=== PATIENT | female | born 1970 | race Two or more races ===

== ENCOUNTER 2016-12-24 00:40 | Emergency (ER) | payer BC ==
[~2016-12-24] VITALS: Ht 157.5 cm; Wt 108.0 kg
[2016-12-24] MEDS ORDERED: HYDR-2666 PO (01:54)
--- NOTE | 2016-12-24 01:54 | PHYS DOC ---
Past Medical History Past Medical History: Other Additional Past Medical Histor: Prediabetes Past Surgical History: No Surgical History Alcohol Use: None Drug Use: None Adult General Chief Complaint Chief Complaint: UPPER EXTREMITY PAIN HPI HPI 46-year-old female presenting to the emergency department with pain in the neck that is sharp stabbing radiating down both arms. It is intermittent and is been present for the last 2 weeks. It is worse with movement of the neck. She denies any numbness weakness or tingling. She denies any slurring speech. She denies any recent trauma or MVC. Review of systems is negative for chest pain shortness of breath abdominal pain or vomiting. All other review of systems is negative unless otherwise noted in history of present illness. Review of Systems Review of Systems SEE ABOVE. Current Medications Current Medications Current Medications Medications (Trade) Dose Ordered Sig/Anila Start Time Stop Time Status Last Admin Dose Admin Hydromorphone HCl (Dilaudid) 1 mg 1X ONCE 12/24/16 02:00 12/24/16 02:01 DC 12/24/16 01:55 1 MG Allergies Allergies Allergies Coded Allergies Type Severity Reaction Last Updated Verified No Known Drug Allergies 12/24/16 No Physical Exam Physical Exam Constitutional: Well developed, well nourished, no acute distress, non-toxic appearance. HENT: Normocephalic, atraumatic, bilateral external ears normal, oropharynx moist, no oral exudates, nose normal. [] Eyes: PERRLA, EOMI, conjunctiva normal, no discharge. [] Neck: Normal range of motion, no tenderness, supple, no stridor. Cardiovascular:Heart rate regular rhythm, no murmur [] Lungs & Thorax: Bilateral breath sounds clear to auscultation Abdomen: Bowel sounds normal, soft, no tenderness, no masses, no pulsatile masses. Skin: Warm, dry, no erythema, no rash. [] Back: No tenderness, no CVA tenderness. Extremities: No tenderness, no cyanosis, no clubbing, ROM intact, no edema. Neurologic: Neuro exam: Mental status: Awake oriented and alert x3 Cranial nerves: Extraocular movements intact, eyebrows tru bilaterally smile symmetric, uvula elevation, shoulder shrug intact, tongue protrusion normal Sensation: equal and normal in all extremities Strength: 5/5 in upper and lower extremities bilaterally Psychologic: Affect normal, judgement normal, mood normal. Current Patient Data Vital Signs Vital Signs Date Time Temp Pulse Resp B/P Pulse Ox O2 Delivery O2 Flow Rate FiO2 12/24/16 01:55 18 12/24/16 01:06 98.3 78 150/76 98 Room Air 98.3 Lab Values Laboratory Tests Test 12/24/16 01:43 POC Urine HCG, Qualitative Hcg negative (Negative) EKG EKG [] Radiology/Procedures Radiology/Procedures [] Course & Med Decision Making Course & Med Decision Making Pertinent Labs and Imaging studies reviewed. (See chart for details) [] 38-year-old female presenting to the emergency department with neck pain radiating down both extremities. Vital signs unremarkable. Neurologic exam unremarkable. Signs and symptoms suggestive of cervical radiculopathy. Intramuscular medication given for pain. On reevaluation her pain improved significantly. I recommended the patient follow up with her primary care physician in 2 days for further evaluation workup and care. Obtaining an outpatient cervical MRI may be appropriate, defer to PCP. Dragon Disclaimer Dragon Disclaimer This electronic medical record was generated, in whole or in part, using a voice recognition dictation system. Departure Departure Impression: Primary Impression: Cervical radicular pain Disposition: HOME, SELF-CARE Condition: STABLE Referrals: JAMES MILLER MD (PCP) Patient Instructions: Cervical Radiculopathy Additional Instructions: Thank you for allowing us to participate in your care today. Followup with your primary care physician in 3 days if your symptoms do not improve. If you do not have a primary care provider you can ask for a list of our primary care providers. Return to the emergency department you have any new or concerning findings. This should be evaluated by the primary care physician and any necessary consulting services for continued management within a few days after discharge. Return to emergency room if you have any new or concerning symptoms including but not limited to fever, chills, nausea, vomiting, intractable pain, any new rashes, chest pain, shortness of air, uncontrolled bleeding, difficulty breathing, and/or vision loss. You may have been prescribed medication that can change in your level of thinking and ability to operate machinery. These medications include hydrocodone and Ativan. Also, Benadryl has been known to do this as well. Be sure to check with your pharmacist and ask if the medications you've prescribed can affect your level of consciousness. I recommend not operating heavy machinery or driving while on medication such as these. Scripts Hydrocodone Bit/Acetaminophen (Hydrocodone-Apap 5-325 )1 Each Tablet1 Tab PO PRN Q6HRS PRN PAIN #15 TAB Be careful as this medication may cause you to be drowsy or tired. Do not drive on this medication. Prov:JOCELIN JOHNSON MD 12/24/16 JOCELIN JOHNSON MD Dec 24, 2016 01:54
[2016-12-24] MEDS ORDERED: HYDROMORPHONE 2 MG/ML VIAL. IM ONE (02:00)
[2016-12-24 02:15] VITALS: BP 143/83
== END 2016-12-24 02:20 | disposition home or self-care (01) ==
LOC: ER 00:40
DX: M54.12 Radiculopathy, cervical region (principal)
CPT/HCPCS: 81025; 96372; 99283; J1170

== ENCOUNTER → 2017-01-09 | Outpatient (CLI) | payer BC ==
[2016-12-24 02:15] VITALS: BP 143/83
[~2017-01-09] MED LIST: HYDR-2666 PO
--- NOTE | 2017-01-09 11:08 | KCIC ---
PROCEDURE Abdomen sonogram. HISTORY Pain. TECHNIQUE Sonographic imaging of the abdomen was performed. COMPARISON None. FINDINGS The exam is limited due to body habitus and bowel gas. There is hepatomegaly and hepatic steatosis. No focal hepatic lesion is seen. The common bile duct is normal in caliber, measuring 3.2 mm. The gallbladder, kidneys and spleen are unremarkable. The pancreas is partially obscured due to bowel gas. The abdominal aorta is partially obscured due to bowel gas. However, the visualized portions of the aorta are normal in caliber. The inferior vena cava is patent. There is no sonographic evidence of ventral abdominal wall hernia. IMPRESSION 1. Hepatomegaly and hepatic steatosis. 2. Otherwise, relatively unremarkable abdomen sonogram. The exam is limited due to bowel gas and body habitus. Electronically signed by: Carline Arrieta (Jan 09, 2017 11:07:03)
== END | disposition home or self-care (01) ==
LOC: KCIC US 08:54
PROVIDERS: ATTEND Family Medicine
DX: R10.9 Unspecified abdominal pain (principal); K46.9 Unspecified abdominal hernia without obstruction or gangrene
CPT/HCPCS: 76700

== ENCOUNTER 2021-07-01 16:11 | Emergency (ER) | payer SELFPAY ==
[~2021-07-01] VITALS: Ht 160 cm; Wt 96.0 kg
[~2021-07-01 16:11] MED LIST changes: -HYDR-2666 PO; +HYDR-2761 PO
[2021-07-01] MEDS ORDERED: fentaNYL PF VIAL 100 MCG/2 ML VIAL IVP ONE (18:15)
[2021-07-01] MEDS ORDERED: IV NORMAL SALINE 1000ML BAG 1,000 ML IV SCH (18:15)
[2021-07-01 18:28] LABS: BILIRUBIN,URINE SMALL (NEG); CLARITY,URINE CLOUDY; COLOR,URINE AMBER; NITRITE,URINE NEGATIVE (NEG); PH,URINE 5.5 (<5.0-8.0); PROTEIN,URINE 30 mg/dL (NEG-TRACE); UROBILINOGEN,URINE 0.2 mg/dL (0.2 mg/dL)
--- NOTE | 2021-07-01 18:40 | RAD ---
Examination: CT of the abdomen pelvis without contrast HISTORY: History of right lower quadrant abdominal pain, flank pain COMPARISON: None available TECHNIQUE: Axial CT images of the abdomen pelvis were performed without contrast. Coronal and sagitta l deformities are performed Exposure: One or more of the following individualized dose reduction techniques were utilized for thi s examination: 1. Automated exposure control 2. Adjustment of the mA and/or kV according to patient size 3. Use of iterative reconstruction technique FINDINGS: The bibasilar lungs are clear. No evidence of free air identified in the abdomen The evaluation of the solid organs is limited due to lack of IV contrast. The evaluation of bowel is limited due to lack of oral contrast. The visualized noncontrasted liver, spleen, adrenals grossly ap pears unremarkable. The gallbladder is mildly distended. The stomach is mildly distended. Faint quest ionable fat stranding identified about the pancreas. Small bowel is nondilated. The appendix is isabella l. Feces and gas noted in the colon. Rounded densities identified in the uterus with the largest sukhjinder uring 5.2 cm probably fibroids. No evidence of intrarenal collecting system calculi or hydronephrosis . Mild degenerative changes thoracolumbar spine. IMPRESSION: 1. Faint questionable fat stranding identified about the pancreas could been significant motion marion fact or mild pancreatitis. Correlate with lab values. 2. Rounded densities identified in the uterus with the largest measuring 5.2 cm probably fibroids. Electronically signed by: Tito Zamora MD (07/01/2021 6:37 PM) [id number]
[2021-07-01 18:41] LABS: BACTERIA,URINE FEW /HPF (0-FEW); RBC,URINE 0 /HPF (0-2)
[2021-07-01 19:06] LABS: BASO # 0.1 x10^3/uL (0.0-0.2); BASO % 1 % (0-3); EOS # 0.2 x10^3/uL (0.0-0.7); EOS % 2 % (0-3); HEMATOCRIT 38.5 % (36.0-47.0); HEMOGLOBIN 13.3 g/dL (12.0-15.5); LYMPH # 2.3 x10^3/uL (1.0-4.8); LYMPH % 24 % (24-48); MEAN CORPUSCULAR HEMOGLOBIN 31 pg (25-35); MEAN CORPUSCULAR HGB CONC 35 g/dL (31-37); MEAN CORPUSCULAR VOLUME 90 fL (79-100); MONO # 0.7 x10^3/uL (0.0-1.1); MONO % 8 % (0-9); NEUT % 65 % (31-73); PLATELET COUNT 346 x10^3/uL (140-400); RED BLOOD COUNT 4.27 x10^6/uL (3.50-5.40); RED CELL DISTRIBUTION WIDTH 12.6 % (11.5-14.5); WHITE BLOOD COUNT 9.3 x10^3/uL (4.0-11.0)
[2021-07-01 19:16] LABS: CALCIUM 9.8 mg/dL (8.5-10.1); CREATININE 0.7 mg/dL (0.6-1.0); GFR 87.9; POTASSIUM 3.6 mmol/L (3.5-5.1)
--- NOTE | 2021-07-01 19:17 | PHYS DOC ---
Past Medical History Past Medical History: Other Additional Past Medical Histor: Prediabetes Past Surgical History: No Surgical History Smoking Status: Former Smoker Alcohol Use: Occasionally Drug Use: None General Adult EDM: Chief Complaint: BACK PAIN - NO INJURY HPI: HPI: Patient is a 50 year old female who presents with right lower quadrant pain that wraps around to her back at times will be sharp shooting down her leg. Is worse with movement. When she goes to put her right leg down to take a step the pain shoots up. She does do food prep. Patient states she took 3 ibuprofen at 1400 today. States she has had this pain in the past but does not know she was diagnosed for it. Patient has had both of her Covid vaccines. Patient rates her pain as a 7 out of 10 at this time. She denies urinary symptoms, fever, nausea, vomiting, diarrhea, chest pain, shortness of air, focal weakness, loss of bowel bladder, numbness or tingling, dizziness, headache. Review of Systems: Review of Systems: Constitutional: Denies fever or chills. [] Eyes: Denies change in visual acuity. [] HENT: Denies nasal congestion or sore throat. [] Respiratory: Denies cough or shortness of breath. [] Cardiovascular: Denies chest pain or edema. [] GI: + Right lower quadrant abdominal pain, denies nausea, vomiting, bloody stools or diarrhea. [] : Denies dysuria. [] Musculoskeletal: + Right lower back pain or denies joint pain. + Back of leg pain [] Integument: Denies rash. [] Neurologic: Denies headache, focal weakness or sensory changes. [] Endocrine: Denies polyuria or polydipsia. [] Lymphatic: Denies swollen glands. [] Psychiatric: Denies depression or anxiety. [] Heart Score: C/O Chest Pain: No Risk Factors: Risk Factors: DM, Current or recent (<one month) smoker, HTN, HLP, family h istory of CAD, obesity. Risk Scores: Score 0 - 3: 2.5% MACE over next 6 weeks - Discharge Home Score 4 - 6: 20.3% MACE over next 6 weeks - Admit for Clinical Observation Score 7 - 10: 72.7% MACE over next 6 weeks - Early Invasive Strategies Current Medications: Current Medications Medications (Trade) Dose Ordered Sig/Anila Start Time Stop Time Status Last Admin Dose Admin Fentanyl Citrate (Fentanyl 2ml Vial) 25 mcg 1X ONCE 07/01/21 18:15 07/01/21 18:24 DC 07/01/21 19:03 25 MCG Sodium Chloride 1,000 ml @ 1,000 mls/hr Q1H 07/01/21 18:15 07/01/21 19:14 07/01/21 19:03 1,000 MLS/HR Allergies: Allergies: Allergies Coded Allergies Type Severity Reaction Last Updated Verified No Known Drug Allergies 12/24/16 No Physical Exam: PE: Constitutional: Well developed, well nourished, no acute distress, non-toxic appearance. [] HENT: Normocephalic, atraumatic, bilateral external ears normal, oropharynx moist, no oral exudates, nose normal. [] Eyes: PERRLA, EOMI, conjunctiva normal, no discharge. [] Neck: Normal range of motion, no tenderness, supple, no stridor. [] Cardiovascular:Heart rate regular rhythm, no murmur [] Lungs & Thorax: Bilateral breath sounds clear to auscultation [] Abdomen: Bowel sounds normal, soft, right lower tenderness, no masses, no pulsatile masses. [] Skin: Warm, dry, no erythema, no rash. [] Back: Right lower tenderness, no CVA tenderness. [] Extremities: No tenderness, no cyanosis, no clubbing, ROM intact, no edema. [] Neurologic: Alert and oriented X 3, normal motor function, normal sensory function, no focal deficits noted. [] Psychologic: Affect normal, judgement normal, mood normal. [] Current Patient Data: Labs: Laboratory Tests Test 07/01/21 17:33 07/01/21 19:00 Urine Collection Type Unknown Urine Color Tammy Urine Clarity Cloudy Urine pH 5.5 (<5.0-8.0) Urine Specific Brandon >=1.030 (1.000-1.030) Urine Protein 30 mg/dL (NEG-TRACE) Urine Glucose (UA) Negative mg/dL (NEG) Urine Ketones (Stick) Trace mg/dL (NEG) Urine Blood Small (NEG) Urine Nitrite Negative (NEG) Urine Bilirubin Small (NEG) Urine Urobilinogen Dipstick 0.2 mg/dL (0.2 mg/dL) Urine Leukocyte Esterase Negative (NEG) Urine RBC 0 /HPF (0-2) Urine WBC 5-10 /HPF (0-4) Urine Squamous Epithelial Cells Many /LPF Urine Bacteria Few /HPF (0-FEW) Urine Mucus Marked /LPF White Blood Count 9.3 x10^3/uL (4.0-11.0) Red Blood Count 4.27 x10^6/uL (3.50-5.40) Hemoglobin 13.3 g/dL (12.0-15.5) Hematocrit 38.5 % (36.0-47.0) Mean Corpuscular Volume 90 fL (79-100) Mean Corpuscular Hemoglobin 31 pg (25-35) Mean Corpuscular Hemoglobin Concent 35 g/dL (31-37) Red Cell Distribution Width 12.6 % (11.5-14.5) Platelet Count 346 x10^3/uL (140-400) Neutrophils (%) (Auto) 65 % (31-73) Lymphocytes (%) (Auto) 24 % (24-48) Monocytes (%) (Auto) 8 % (0-9) Eosinophils (%) (Auto) 2 % (0-3) Basophils (%) (Auto) 1 % (0-3) Neutrophils # (Auto) 6.0 x10^3/uL (1.8-7.7) Lymphocytes # (Auto) 2.3 x10^3/uL (1.0-4.8) Monocytes # (Auto) 0.7 x10^3/uL (0.0-1.1) Eosinophils # (Auto) 0.2 x10^3/uL (0.0-0.7) Basophils # (Auto) 0.1 x10^3/uL (0.0-0.2) Laboratory Tests 07/01/21 19:00 Vital Signs: Vital Signs Date Time Temp Pulse Resp B/P (MAP) Pulse Ox O2 Delivery O2 Flow Rate FiO2 07/01/21 19:03 16 99 Room Air 07/01/21 17:46 98.4 76 155/97 (103) 98.4 EKG: EKG: [] Radiology/Procedures: Radiology/Procedures: [] Impression: [facility] [address] [place], [place] [id number] IMAGING REPORT Signed PATIENT: JACKLYN RIGGSIAACCOUNT: [id number] : 1970 LOCATION: ER AGE: 50 SEX: F EXAM STATUS: PRE ER ORD. PHYSICIAN: ANGEL EAST APRN REASON: RLQ PAIN, RIGHT FLANK PAIN PROCEDURE: CT ABDOMEN PELVIS WO CONTRAST Examination: CT of the abdomen pelvis without contrast HISTORY: History of right lower quadrant abdominal pain, flank pain COMPARISON: None available TECHNIQUE: Axial CT images of the abdomen pelvis were performed without contrast. Coronal and sagittal deformities are performed Exposure: One or more of the following individualized dose reduction techniques were utilized for this examination: 1. Automated exposure control 2. Adjustment of the mA and/or kV according to patient size 3. Use of iterative reconstruction technique FINDINGS: The bibasilar lungs are clear. No evidence of free air identified in the abdomen The evaluation of the solid organs is limited due to lack of IV contrast. The evaluation of bowel is limited due to lack of oral contrast. The visualized noncontrasted liver, spleen, adrenals grossly appears unremarkable. The gallbladder is mildly distended. The stomach is mildly distended. Faint questionable fat stranding identified about the pancreas. Small bowel is n ondilated. The appendix is normal. Feces and gas noted in the colon. Rounded densities identified in the uterus with the largest measuring 5.2 cm probably fibroids. No evidence of intrarenal collecting system calculi or hydronephrosis. Mild degenerative changes thoracolumbar spine. IMPRESSION: 1. Faint questionable fat stranding identified about the pancreas could been significant motion artifact or mild pancreatitis. Correlate with lab values. 2. Rounded densities identified in the uterus with the largest measuring 5.2 cm probably fibroids. Electronically signed by: Tito Zamora MD (07/01/2021 6:37 PM) [id number] DICTATED and SIGNED BY: TITO ZAMORA MD DATE: 07/01/21 [id number] 0 Course & Med Decision Making: Course & Med Decision Making Pertinent Labs and Imaging studies reviewed. (See chart for details) See HPI. Alert and oriented x4. Ambulatory steady gait. Speaks in full clear sentences. No saddle paresthesia. Moving all extremities equally with equal strength. Tenderness to the right lower back area and right lower quadrant area. More so in the right back area. Sensations intact. No extremity swelling. Vital signs are within normal limits. Skin pink warm and dry. Pedal pulses strong and present. Lab values do not show pancreatitis. Patient does not have any pain in the upper abdomen. She has no nausea or vomiting. Patient be discharged home as this is likely sciatica related. [] Daniella Disclaimer: Draginder Disclaimer: This electronic medical record was generated, in whole or in part, using a voice recognition dictation system. Departure Departure Impression: Primary Impression: Sciatica of right side Disposition: HOME / SELF CARE / HOMELESS Condition: STABLE Referrals: UNKNOWN PCP NAME (PCP) Patient Instructions: Sciatica with [facility] Additional Instructions: Follow-up with primary care provider soon as possible. Take medication as p rescribed and with food. Risks and these medications will make you sleepy do not drive or drink any alcohol on top of them. If you lose your bowel or bladder, start running a fever or having numbness and tingling or weakness return emergency room. Scripts Tramadol Hcl (TRAMADOL HCL) 50 Mg Tablet 50 MG PO Q6HRS PRN for PAIN, #10 TAB Prov: ANGEL EAST APRN 07/01/21 Orphenadrine Citrate (ORPHENADRINE CITRATE) 100 Mg Tablet.er 1 TAB PO BID, #14 TAB Prov: ANGEL EAST APRN 07/01/21 ANGEL EAST APRN Jul 01, 2021 19:17
[2021-07-01 19:19] VITALS: BP 148/86
[2021-07-01 19:22] LABS: ALBUMIN 4.3 g/dL (3.4-5.0); ALBUMIN/GLOBULIN RATIO 1.2 (1.0-1.7); TOTAL BILIRUBIN 0.7 mg/dL (0.2-1.0)
[2021-07-01] MEDS ORDERED: TRAM50TA PO (19:33)
[2021-07-01] MEDS ORDERED: ORPH100T PO (19:33)
== END 2021-07-01 19:44 | disposition home or self-care (01) ==
LOC: ER 16:11
DX: M54.31 Sciatica, right side (principal); R10.31 Right lower quadrant pain; M79.604 Pain in right leg; Z87.891 Personal history of nicotine dependence
CPT/HCPCS: 36415; 74176; 80053; 81001; 83690; 85025; 87086; 96361; 96374; 99284; J3010; J7030; 87077; 87186